=== PATIENT | female | born 1995 | race Two or more races ===

== ENCOUNTER 2024-10-24 19:41 | Emergency (ER) | payer MEDICAID, OTHER ==
[~2024-10-24] VITALS: Ht 152.4 cm; Wt 87.7 kg
[2024-10-24 19:53] VITALS: BP 117/89; PULSE 102; RESP 16; O2SAT 98
== END 2024-10-24 20:08 | disposition left against medical advice (07) ==
LOC: ER 19:41
DX: R06.02 Shortness of breath (principal); Z53.21 Procedure and treatment not carried out due to patient leaving prior to being seen by health care provider